=== PATIENT | female | born 1960 | race Hispanic/Latino ===

== ENCOUNTER → 2019-02-15 | Outpatient (CLI) | payer OTHER | END | disposition home or self-care (01) | LOC: RAH 14:46 | PROVIDERS: ATTEND Internal Medicine Cardiovascular Disease | DX: Z13.6 Encounter for screening for cardiovascular disorders (principal) | CPT/HCPCS: 75571 ==

== ENCOUNTER → 2025-05-24 | Outpatient (CLI) | payer OTHER ==
--- NOTE | 2025-05-25 02:50 | HMCIMG ---
EXAM: MR Brain Without Intravenous Contrast CLINICAL HISTORY: Stabbing headache. TECHNIQUE: Multisequence, multiplanar magnetic resonance images of the brain obtained without intravenous contrast. CONTRAST: None. COMPARISON: None provided. FINDINGS: BRAIN: Age-appropriate diffuse cerebral volume loss. Scattered periventricular and fronto-parietal [id number] hyperintensities consistent with chronic small-vessel ischaemic change, Fazekas grade I. No restricted diffusion to suggest acute infarction. No intracranial mass, haemorrhage, midline shift or extra-axial collection. No cerebellar tonsillar ectopia. Intracranial arterial and venous flow voids are preserved. VENTRICLES: Normal ventricular calibre. No hydrocephalus. ORBITS: Unremarkable. SINUSES AND MASTOIDS: Paranasal sinuses and mastoid air cells are clear. BONES: No acute fracture or aggressive osseous lesion. IMPRESSION: * Age-appropriate diffuse cerebral volume loss with Fazekas grade I chronic small-vessel ischaemic changes in the bilateral fronto-parietal white matter. * No acute intracranial abnormality. /[place]
== END | disposition home or self-care (01) ==
LOC: RAH 12:20
PROVIDERS: ATTEND Internal Medicine Cardiovascular Disease
DX: I67.82 Cerebral ischemia (principal); G44.85 Primary stabbing headache
CPT/HCPCS: 70551